=== PATIENT | male | born 1960 | race African-American/Black ===

== ENCOUNTER 2020-02-16 18:31 | Emergency (ER) | payer OTHER, BC ==
[2020-02-16] MEDS ORDERED: Sodium Chloride 0.9% 1,000 ML IV ONE ×2 (19:07→19:30)
--- NOTE | 2020-02-16 19:13 | EDM.PDOC ---
ED HPI GENERAL MEDICAL PROBLEM - General Chief Complaint: Chest Pain Stated Complaint: HEADACHE Time Seen by Provider: 02/16/20 18:32 Source of Information: Reports: Patient History Limitations: Reports: No Limitations - History of Present Illness INITIAL COMMENTS - FREE TEXT/NARRATIVE: Patient is 59-year-old male no significant past medical history presenting with chief complaint of lightheadedness and burning in his chest. Patient states the symptoms occur intermittently throughout the day. Lightheadedness was predominantly when he was moving from a seated to standing position and sometimes after he had a bit of coughing. Patient denies copious coughing or any sputum production. Patient denies any fevers. Patient does report some associated burning in the substernal area without radiation. This was not made worse with exertion. Has since resolved. Patient denies any recent travels, lower extremity swelling, calf pain, history of DVT or PE. Pmhx: Asthma Pshx: None Family Hx: Father had MA at age of 66 Smoking history? no Etoh use? none Drug use? none In addition to that documented in the HPI above, the additional ROS was obtained : Constitutional: Denies fevers or chills Eyes: Denies vision changes ENMT: Denies sore throat CV: Per HPI Resp: Denies SOB GI: Denies vomiting or diarrhea : Denies painful urination MSK: Denies recent trauma Skin: Denies new rashes Neuro: Denies new numbness or tingling or weakness Endocrine: Denies unexpected weight loss Heme: Denies bleeding disorders I have reviewed the triage vital signs Const: Well nourished, well developed, appears stated age Eyes: PERRL, no conjunctival injection HENT: NCAT, Neck supple without meningismus CV: RRR, Warm, well-perfused extremities RESP: No chest wall tenderness to palpation, Unlabored respiratory effort GI: soft, non-tender, non-distended, no masses MSK: No gross deformities appreciated Skin: Warm, dry. No rashes Neuro: Alert, purchasing/receiving II-XII grossly intact. Sensation and motor function of extremities grossly intact. No nystagmus, [id number] intact bilaterally Psych: Appropriate mood and affect Assessment and plan: Patient 59-year-old male presenting with chief complaint of lightheadedness and vague chest discomfort. Patient's lightheadedness seems to be associated with standing and may be orthostatic in nature. Patient's lab studies demonstrated a slight elevation of his BUN and creatinine which improved after administration of IV fluids. Is likely that dehydration is contributing to the patient's symptoms and after IV fluids symptoms improved. Chest pain does not seem to be a ACS, PE, dissection. Patient is low heart score and serial troponins were negative. Patient given return precautions. All questions addressed and answered. Patient is a plan. chest Pain Score (Numeric/FACES): 4 headache Pain Score (Numeric/FACES): 6 - Related Data Allergies Allergy/AdvReac Type Severity Reaction Status Date / Time Seafood Allergy Swelling Uncoded 02/16/20 19:02 Home Meds: Home Meds . [No Known Home Meds] 02/16/20 [History] ED ROS GENERAL - Review of Systems Review Of Systems: See Below ED EXAM, GENERAL - Physical Exam Exam: See Below Course - Vital Signs Last Recorded V/S: Last Vital Signs Temp 36.4 C 02/16/20 20:30 Pulse 90 02/16/20 21:00 Resp 17 02/16/20 21:00 BP 129/84 02/16/20 21:00 Pulse Ox 96 02/16/20 21:00 - Orders/Labs/Meds Orders: Active Orders 24 hr Category Date Time Status EKG 12 Lead [EKG Documentation Completion] [RC] STAT Care 02/16/20 20:10 Active Labs: Laboratory Tests 02/16/20 02/16/20 02/16/20 Range/Units 18:48 18:48 20:50 WBC 7.34 (4.0-11.0) K/uL RBC 5.37 (4.50-5.90) M/uL Hgb 16.6 (13.0-17.0) g/dL Hct 46.5 (38.0-50.0) % MCV 86.6 (80.0-98.0) fL MCH 30.9 (27.0-32.0) pg MCHC 35.7 (31.0-37.0) g/dL RDW Std Deviation 45.7 (28.0-62.0) fl RDW Coeff of Kenzie 15 (11.0-15.0) % Plt Count 234 (150-400) K/uL MPV 9.20 (7.40-12.00) fL Neut % (Auto) 52.0 (48.0-80.0) % Lymph % (Auto) 37.5 (16.0-40.0) % Gove % (Auto) 7.5 (0.0-15.0) % Eos % (Auto) 2.3 (0.0-7.0) % Baso % (Auto) 0.7 (0.0-1.5) % Neut # (Auto) 3.8 (1.4-5.7) K/uL Lymph # (Auto) 2.8 H (0.6-2.4) K/uL Gove # (Auto) 0.6 (0.0-0.8) K/uL Eos # (Auto) 0.2 (0.0-0.7) K/uL Baso # (Auto) 0.1 (0.0-0.1) K/uL Nucleated RBC % 0.8 /100WBC Nucleated RBCs # 0 K/uL Sodium 140 140 (136-148) mmol/L Potassium 3.7 4.6 (3.5-5.1) mmol/L Chloride 103 107 (98-107) mmol/L Carbon Dioxide 25.3 24.5 (21.0-32.0) mmol/L BUN 21 H 20 H (7.0-18.0) mg/dL Creatinine 1.5 H 1.3 (0.8-1.3) mg/dL Est Cr Clr Drug Dosing 50.80 58.61 mL/min Estimated GFR (MDRD) 58.5 > 60.0 ml/min Glucose 116 H 102 (74-106) mg/dL Calcium 8.8 8.5 (8.5-10.1) mg/dL Troponin I < 0.050 < 0.050 (0.000-0.056) ng/mL Meds: Medications Discontinued Medications Generic Name Dose Route Start Last Admin Trade Name Freq PRN Reason Stop Dose Admin Sodium Chloride 1,000 mls @ 1,000 mls/hr 02/16/20 19:07 02/16/20 19:43 Normal Saline IV 02/16/20 20:06 1,000 mls/hr .Bolus ONE Administration Sodium Chloride 1,000 mls @ 1,000 mls/hr 02/16/20 19:30 02/16/20 20:55 Normal Saline IV 02/16/20 20:29 1,000 mls/hr .Bolus ONE Administration Departure - Departure Time of Disposition: 22:00 Disposition: Home, Self-Care 01 Clinical Impression: Dehydration, SOLIS (acute kidney injury) Instructions: Dehydration, Adult, [id number] Referrals: PCP,None [Primary Care Provider] - Forms: ED Department Discharge Additional Instructions: The following information is given to patients seen in the emergency department who are being discharged to home. This information is to outline your options for follow-up care. We provide all patients seen in our emergency department with a follow-up referral. The need for follow-up, as well as the timing and circumstances, are variable depending upon the specifics of your emergency department visit. If you don't have a primary care physician on staff, we will provide you with a referral. We always advise you to contact your personal physician following an emergency department visit to inform them of the circumstance of the visit and for follow-up with them and/or the need for any referrals to a consulting specialist. The emergency department will also refer you to a specialist when appropriate. This referral assures that you have the opportunity for follow-up care with a specialist. All of these measure are taken in an effort to provide you with optimal care, which includes your follow-up. Under all circumstances we always encourage you to contact your private physician who remains a resource for coordinating your care. When calling for follow-up care, please make the office aware that this follow-up is from your recent emergency room visit. If for any reason you are refused follow-up, please contact the [facility] Emergency Department at and asked to speak to the emergency department charge nurse. Is important to follow-up with your primary care physician to monitor your kidney function. Please schedule appointment in the next 1 to 2 weeks. Sepsis Event Note - Evaluation Sepsis Screening Result: No Definite Risk - Focused Exam Vital Signs: Vital Signs Temp Pulse Resp BP Pulse Ox 02/16/20 21:00 90 17 129/84 96 02/16/20 20:30 36.4 C 96 18 129/83 96 02/16/20 20:00 97 18 130/80 95 02/16/20 19:30 99 18 133/84 96 02/16/20 18:32 36.3 C 109 H 18 166/88 H 96 Date Exam was Performed: 02/16/20 Time Exam was Performed: 22:00 - My Orders Last 24 Hours: My Active Orders 02/16/20 20:10 EKG 12 Lead [EKG Documentation Completion] [RC] STAT - Assessment/Plan Last 24 Hours: My Active Orders 02/16/20 20:10 EKG 12 Lead [EKG Documentation Completion] [RC] STAT
[2020-02-16 19:28] LABS: BLOOD UREA NITROGEN,BUN 21 mg/dL (7.0-18.0); CARBON DIOXIDE,CO2 25.3 mmol/L (21.0-32.0); CHLORIDE,CL 103 mmol/L (98-107); GLUCOSE RANDOM 116 mg/dL (74-106); POTASSIUM,K 3.7 mmol/L (3.5-5.1); SODIUM,NA 140 mmol/L (136-148)
--- NOTE | 2020-02-16 19:55 | CR ---
Chest: Frontal view of the chest was obtained utilizing portable technique. Comparison: No prior chest imaging is available. Heart size and mediastinum are within normal limits for portable technique. Lungs are clear with no acute parenchymal change. Bony structures are grossly intact. Impression: 1. Nothing acute is seen on portable chest x-ray. Diagnostic code #1 This report was dictated in MDT
[2020-02-16 21:57] LABS: BLOOD UREA NITROGEN,BUN 20 mg/dL (7.0-18.0); CARBON DIOXIDE,CO2 24.5 mmol/L (21.0-32.0); CHLORIDE,CL 107 mmol/L (98-107); GLUCOSE RANDOM 102 mg/dL (74-106); POTASSIUM,K 4.6 mmol/L (3.5-5.1); SODIUM,NA 140 mmol/L (136-148)
== END 2020-02-16 22:18 | disposition home or self-care (01) ==
LOC: MW.ED 18:31
DX: N17.9 Acute kidney failure, unspecified (principal); E86.0 Dehydration; Z91.013 Allergy to seafood
CPT/HCPCS: 36415; 71045; 80048; 84484; 85025; 93005; 96360; 96361; 99285; J7030; 99284